=== PATIENT | male | born 1935 | race Caucasian/White ===

== ENCOUNTER 2024-02-19 12:44 | Outpatient (CLI) | payer MEDICARE ==
[2024-02-19] MEDS ORDERED: iohexol 350MG/ML 100ml bottle IV ONE (13:10)
[2024-02-19 13:45] LABS: ALBUMIN 3.6 G/DL (3.4-5.0); ANION GAP 7 (8-16); BLOOD UREA NITROGEN 22 MG/DL (7-18); BUN/CREATININE RATIO 22.4 (10.0-20.0); CHLORIDE 105 MMOL/L (99-107); CREATININE 0.98 MG/DL (0.60-1.10); GLUCOSE 85 MG/DL (70-104); POTASSIUM 4.3 MMOL/L (3.5-5.1); SODIUM 142 MMOL/L (135-145); TOTAL CARBON DIOXIDE 29.6 MMOL/L (24-32); eGFR 72 ML/MIN
== END 2024-02-19 23:59 | disposition home or self-care (01) ==
LOC: 64 CT 12:44
PROVIDERS: ATTEND Internal Medicine Interventional Cardiology
DX: I65.23 Occlusion and stenosis of bilateral carotid arteries (principal); M25.78 Osteophyte, vertebrae; I70.0 Atherosclerosis of aorta; M47.814 Spondylosis without myelopathy or radiculopathy, thoracic region; I65.01 Occlusion and stenosis of right vertebral artery
CPT/HCPCS: 36415; 70498; 80048; Q9967